=== PATIENT | female | born 1950 | race Caucasian/White ===

== ENCOUNTER 2016-09-10 10:30 | Day surgery (SDC) | payer BC, MEDICARE ==
[2016-09-06 11:12] LABS: HEMATOCRIT 42.3 % (36.0-48.0); HEMOGLOBIN 14.3 g/dL (12.0-16.0)
[2016-09-06 11:32] LABS: BUN (BLOOD UREA NITROGEN) 9 MG/DL (6-23); CALCIUM, SERUM 9.2 MG/DL (8.5-10.4); CHLORIDE, SERUM 105 MMOL/L (96-112); CO2 (CARBON DIOXIDE) 31 MMOL/L (24-34); CREATININE 0.79 MG/DL (0.55-1.02); GFR AFRICAN AMERICAN 91 ML/MIN (>=60); GFR NON AFRICAN AMERICAN 79 ML/MIN (>=60); GLUCOSE, SERUM 96 MG/DL (60-99); POTASSIUM, SERUM 4.2 MMOL/L (3.5-5.3); SODIUM, SERUM 141 MMOL/L (135-148)
--- NOTE | ~2016-09-10 | OP ---
Record Of Operation [facility] [address] [place]. [address] NAME: JENNIFER GEORGE : 50 [place]US : [place] [facility] [place] [id number] AGE: 65 ADM/REG DATE : 09/10/16 MR#: [id number] REPORT SERV DATE: 09/10/16 DICTATED BY: NEELIMA COLÓN DATE: 09/10/16 REPORT STATUS : Draft TRANSCRIBED BY: MODL DATE: 09/10/16 DATE OF PROCEDURE: 09/10/2016 PRE PROCEDURE DIAGNOSIS: Dysfunctional sacral nerve stimulator. POSTPROCEDURE DIAGNOSIS: Dysfunctional sacral nerve stimulator. PROCEDURE: Removal of sacral nerve stimulator battery and electrode under fluoro. DESCRIPTION OF PROCEDURE: The patient is taken to the operating room, induced under general anesthesia, placed into the prone ericka-knife position, prepped and draped in the usual sterile fashion. Local anesthetic was injected at the 2 incision sites, 1 being where the sacral nerve stimulator was palpable and then the other at the prior incision of the midline where the electrode heads towards the sacrum. Fluoro was used at this point by placing a hemostat where it was felt that the electrode probably entered the sacrum after injecting local anesthetic, at least 2 prior incisions. Incisions were made with a scalpel blade. This was carried down to the level of the sacral nerve stimulator which was easily identified. The capsule was opened, the stimulator brought out. The electrode was clipped with a hemostat, so as not to lose it and the electrode was cut so that the sacral nerve stimulator could be passed off the table and sent to pathology. An incision was made at the midline. This was carried down to the level of where the stimulator was visible. It was grasped with a hemostat. The excess brought out through the tunnel to this incision and then the incision was carried down to the level of the periosteum of the sacrum. Initially this was pulled and it stretched, it gave. The incision was carried down further and a scissor was used to spread the periosteum and on the second pull, half of the electrode all of the wires came out, however, none of the beads were noted. Using fluoro again, it was confirmed that the beads were still in position but partially out of the canal. The plastic was able to be grasped and the tines removed but the beads could not be removed from the foramina, they were left in place. The patient was cleaned and dried. A 3-0 Vicryl SH were used to close the 2 incisions followed by 4-0 Monocryl subcu followed by Mastisol, Steri-Strips, Telfa, and Tegaderm. She tolerated the procedure well. The 2 images pre and post were sent to PACS only. RAFAEL/SABAS Neelima Colón M.D. / [id number] CC: Brisa Ramirez M.D. MICHAEL BRITT, MD
[~2016-09-10 10:30] MED LIST: AMB10 PO; AMB5 PO; CO Q-10100 MG PO; CULTURELLE1 EACH PO; CYANO1000T PO; ESTER-C500 MG PO; ESTRACE1 MG PO; FISH-EPA1000 MG PO; FLEX PO; HALF81 PO; IBU400 PO; LEVSINTAB PO; LOFIBRA54 MG PO; LORTAB 5 PO; MEGA RED PO; MELA3 PO; MELATONIN10 M2 PO; METPAKSF PO; MULTIPLE VIT PO; NEXIUM20 M1 PO; NORCO1 TA2 PO; PERCOCET1 TA2 PO; PERCOCET1 TA3 PO; RELA5 PO; SYN.05 PO; TYLENOL ARTH650 MG PO; VALTREX1 GM PO; VITAMIN B PO; VITAMIN D31000 UNIT PO; VITC500 PO; VITE PO; ZANAFLEX 4 MG TA4 MG PO; ZINC PO; ZOCOR20 PO; ZOFRAN4 PO; ZOL50 PO; ZYRTEC ALLGY10 MG PO
== END 2016-09-10 17:52 | disposition home or self-care (01) ==
LOC: SDC 10:30
PROVIDERS: Surgery
PROC: 0JPT0MZ Removal of Stimulator Generator from Trunk Subcutaneous Tissue and Fascia, Open Approach (ICD-10-PCS; principal; 2016-09-10 12:15)
DX: T85.113A Breakdown (mechanical) of implanted electronic neurostimulator, generator, initial encounter (principal); Z79.899 Other long term (current) drug therapy; G47.33 Obstructive sleep apnea (adult) (pediatric); K21.9 Gastro-esophageal reflux disease without esophagitis; E03.9 Hypothyroidism, unspecified; E66.01 Morbid (severe) obesity due to excess calories; F41.9 Anxiety disorder, unspecified; F32.9 Major depressive disorder, single episode, unspecified; R32 Unspecified urinary incontinence; K64.9 Unspecified hemorrhoids; K58.9 Irritable bowel syndrome, unspecified; M19.90 Unspecified osteoarthritis, unspecified site; E78.00 Pure hypercholesterolemia, unspecified; R00.2 Palpitations; Z90.710 Acquired absence of both cervix and uterus; Z98.890 Other specified postprocedural states; Z90.49 Acquired absence of other specified parts of digestive tract; Z79.891 Long term (current) use of opiate analgesic
CPT/HCPCS: 80048; 85014; 85018; 88300; 93005; A9270-GY; J0690; J1885; J2250; J2270; J2710; J2795; J3010